=== PATIENT | male | born 1960 | race Caucasian/White ===

== ENCOUNTER 2016-05-15 10:17 | Day surgery (SDC) | payer OTHER ==
[~2016-05-15] VITALS: Ht 177.8 cm; Wt 108.2 kg
[~2016-05-15 10:17] MED LIST: 0.9% Sodium Chloride 1,000 ML IV SCH; ADAL40KI SQ; ALLO300T2 PO; AMLO10TA3 PO; ASPI-973 PO; ATEN100T PO; CELE200C PO; CHOL200047 PO; FERR325T6 PO; FOLI1TAB18 PO; GLIP10TA10 PO; LISI40TA PO; Sodium Chloride LOK Flush 10 mL Syringe IV PRN; [UNRECOGNIZED DRUG - REMARK] PO; fentaNYL-PF 50 mCg/mL 2 mL Inj IVPUSH PRN
[2016-05-15 11:46] VITALS: BP 136/70; PULSE 78; RESP 16; O2SAT 98
--- NOTE | 2016-05-15 12:22 | PCM.ENDCOL ---
Colonoscopy Date of Service: May 15, 2016 Physician Wilberto Sheffield MD Pre Procedure Diagnosis: Screening Post Procedure Dx & Findings: Colon polyp Procedure Colonoscopy Prep adequate Withdrawal 10 minutes PROCEDURE IN DETAIL: After unremarkable rectal examination of the Olympus video colonoscope was inserted into patient's anal canal and was advanced to the cecum. Landmarks were identified including the ileocecal valve and the appendiceal orifice. Scope was withdrawn systematically. In the rectosigmoid junction, there was a 3 mm polyp which was removed completely using cold snare. In the rectum retroflexion was done which showed hemorrhoids and anal canal was inspected carefully on the way out and hemorrhoids noted. The mucosa of the cecum, ascending, transverse, descending, sigmoid, rectal mucosa lined with whitish, pink, smooth, glistening, normal-appearing mucosa, normal fine branching, underlying vascularity, normal haustra. The patient tolerated procedure and was transported to observation area. Impression Polyp 1 status post complete removal Hemorrhoids Recommendation A colonoscopy 5 years Presedation Assessment Risks and Benefits Informed consent was obtained from the patient after all risks and benefits including but not limited to drug reaction, infection, pain, bleeding, perforation, as well as alternatives were discussed. Patient monitoring Continuous pulse oximetry, cardiac monitoring, blood pressure monitoring, IV access, and oxygen at 2L per nasal cannula. Periprocedural Fentanyl: Fentanyl 125mcg Incrementally Midazolam: Midazolam 6mg Incrementally Complications There were no periprocedural complications identified. Post Procedure Plan Post Procedure Recommendations 1. Restrict activities today. 2. Resume normal activities in the morning. 3. Resume medications. 4. Patient informed of normal post procedure side effects as bloating, drowsiness, blood streaking in the stool. 5. average risk CRCS. If colon polyps come back as: -Hyperplastic- can repeat colonoscopy in 10 years -Tubular adenoma- repeat colonoscopy in 5 years -Tubulovillous/villous adenoma- repeat colonoscopy in 3 years -If any dysplasia- return to clinic as soon as possible 6. Please don't hesitate to call me with any questions. Wilberto Sheffield MD May 15, 2016 12:21
[2016-05-15 12:25] VITALS: BP 119/63; PULSE 77; RESP 16; O2SAT 97
[2016-05-15 12:35] VITALS: BP 103/57; PULSE 75; RESP 16; O2SAT 97
[2016-05-15 12:44] VITALS: BP 128/69; PULSE 74; RESP 16; O2SAT 97
--- NOTE | 2016-05-16 14:35 | PATH ---
SURGICAL PATHOLOGY Attending Physician:Wilberto Sheffield M.D. CASE STATUS: Signed Out PATIENT NAME: PALAK NGUYEN V. PID: [id number] : 1960 DATE COLLECTED:05/15/2016 20:11 SPECIMEN: Colon, Biopsy CLINICAL HISTORY: 1). RECTOSIGMOID FINAL DIAGNOSIS: 1.RECTOSIGMOID: HYPERPLASTIC POLYP. ICD10 CODE K63.5 GROSS DESCRIPTION: Received in formalin, labeled with the patient' s name and "rectosigmoid polyp", is one fragment of ratliff, soft tissue measuring 0.2 x 0.2 x 0.2 cm. The fragment is totally submitted in one cassette. ([id number]) MICRO DESCRIPTION: See diagnosis. ICD-9 CODES: CPT CODES: 1: 01865 Electronically Signed Out Jahaira Ledezma MD [facility] [address], [place] [address] Technical component performed at [facility], [facility] [address], [place], [address]
== END 2016-05-15 23:59 | disposition home or self-care (01) ==
LOC: END 10:17
PROVIDERS: ATTEND Internal Medicine
DX: K62.1 Rectal polyp (principal); K64.9 Unspecified hemorrhoids; E11.22 Type 2 diabetes mellitus with diabetic chronic kidney disease; N18.2 Chronic kidney disease, stage 2 (mild); I12.9 Hypertensive chronic kidney disease with stage 1 through stage 4 chronic kidney disease, or unspecified chronic kidney disease; L40.50 Arthropathic psoriasis, unspecified; M10.9 Gout, unspecified
CPT/HCPCS: 45385; 99153; G0500; J2250; J3010; J7030